=== PATIENT | male | born 1975 | race Hispanic/Latino ===

== ENCOUNTER 2023-10-21 16:06 | Emergency (ER) | payer SELFPAY ==
[2023-10-21] VITALS (22 sets, daily range): BP systolic 116–153; BP diastolic 77–96; PULSE 70–113; RESP 10–25; TEMP 36.3; O2SAT 96–100; BMI 22.3
--- NOTE | 2023-10-21 16:13 | CT_ITS ---
EXAMINATION : Head CT w/out contrast HISTORY : Ataxia COMPARISON : None. TECHNIQUE : Multiple contiguous axial images were obtained from the skull base to the vertex without intravenous contrast. A radiation dose optimization technique was used for this scan. FINDINGS : There is edema in the left parietal lobe with decreased meadows-white differentiation. Cannot rule out underlying mass. The ventricles and sulci are normal in size. There is no evidence for acute intracranial hemorrhage, mass effect, or midline shift. There is no extra-axial fluid collection. Small kesha hole in the left parietal convexity. The orbits are unremarkable. The paranasal sinuses are clear. The mastoid air cells are well-aerated. The soft tissues are unremarkable. CT/Brain/Head without Contrast IMPRESSION: Edema in the left parietal lobe with decreased meadows-white differentiation. Cannot rule out underlying mass. Recommend brain MRI with and without contrast for further evaluation. Electronically Signed: Kelvin Vega MD at 17:02 EDT ,
--- NOTE | 2023-10-21 16:18 | ED.VIS.STROK ---
HPI History of Present Illness Chief Complaint: Numb/Ting Informant: patient and family Onset/Context/Timing Onset: Today Context: Sudden Onset Timing: Continuous Quality and Location: Positive for - (Right arm and leg ataxia) Onset: 1 hour prior to arrival Worsened by: Nothing Relieved by: Nothing Associated Symptoms Associated Symptoms: Negative for Headache, Nausea, Vomiting or Chest Pain Narrative Narrative: Patient presents with ataxia to his right side that began approximately 1 hour prior to arrival. Patient had recent surgery for a brain biopsy at [facility] 1 month ago. Patient states he has been feeling uncoordinated on his right side. Patient denies any headaches or weakness. Patient denies any nausea or vomiting. Patient denies any visual changes. Patient denies any numbness or tingling. Patient was recently started on Keppra after his brain surgery. Recent Illness/Hospitalization: Yes PFSH PFSH Home Medications ?Medication ?Instructions ?Recorded ?Last Taken ?Type cephalexin 500 mg capsule 500 mg PO .COMPLEX 10/21/23 Unknown History levetiracetam 1,000 mg tablet 3,000 mg PO Q12H 10/21/23 Unknown History (Keppra) Allergy/AdvReac Type Severity Reaction Status Date / Time No Known Allergies Allergy Verified 10/21/23 16:10 Surgical History (Updated 10/21/23 @ 16:[address] Jose Crystal DO) Hx of brain surgery Social History Smoking Status: Never smoker ROS ROS ED Constitutional Constitutional ED: Denies chills or fever(s) Eyes Eyes: Denies blurry vision or change in vision ENT ENT ED: Denies rhinorrhea or sore throat Cardiovascular Cardiovascular: Denies chest pain or palpitations Respiratory/Chest Respiratory/Chest: Denies cough or dyspnea Gastrointestinal Gastrointestinal: Denies nausea or vomiting Genitourinary Genitourinary ED: Denies dysuria or hematuria Musculoskeletal Musculoskeletal: Denies back pain or neck pain Integumentary Denies abscess or rash Neurologic Neurologic: Denies headache(s) or weakness Allergic/Immunologic Allergic/Immunologic ED: Denies mouth swelling or urticaria EXAM Physical Exam Const Vital Signs: 10/21/23 16:08 10/21/23 17:04 10/21/23 17:58 Temperature 97.3 F L Temperature Source Temporal Pulse Rate 113 H 88 91 Respiratory Rate 19 H 20 H 20 H Blood Pressure 153/94 H 140/93 H 137/85 H Blood Pressure Mean 113 108 102 Pulse Ox 100 96 98 Oxygen Delivery Method Room Air Room Air Room Air Positive well nourished and well developed General Appearance ED: well developed and NAD HEENT Reports moist mucous membranes Neck supple and no JVD Resp normal respiratory effort and clear to auscultation bilaterally Cardio Rate: regular rate Rhythm: regular rhythm GI soft to palpation, non-tender and non-distended Extremity normal to inspection General Extremety ED: Negative for deformity or edema General Extremity: Negative for deformity or edema Neuro oriented x3, CN's II-XII intact bilaterally and no sensory deficits noted Neuro Narrative: There is some mild ataxia with finger-nose testing on the right. [id number]-[id number] testing was negative bilaterally. Vicente Coma Scale: document GCS findings Spontaneous Obeys Commands Oriented 15 Sensorium / Orientation: alert Speech: speech normal Motor Exam: strength 5/5 throughout Psych mental status grossly normal MDM MDM MDM Narrative Medical decision making narrative: Differential diagnosis includes stroke, intracranial bleeding, intracranial mass, Keppra toxicity, electrolyte abnormality, dehydration, cardiac dysrhythmia, and cardiac ischemia. CT scan of the brain will be obtained to assess for intracranial bleeding, stroke, and mass. EKG will be obtained to assess for cardiac dysrhythmia. CBC will be obtained to assess for leukocytosis and anemia. Basic metabolic profile will be obtained to assess for electrolyte abnormality and renal function. High-sensitivity troponin will be obtained to assess for cardiac ischemia. PT with INR and PTT will be obtained to assess for coagulopathy. Keppra level will be obtained to assess for Keppra toxicity. Lab Data Attestation: I reviewed the patient's lab results. Lab results narrative: CBC was reviewed and was within normal limits. PT was INR and PTT were reviewed and were within normal limits. Basic metabolic profile was reviewed. Creatinine was slightly elevated at 1.47. The remainder is within normal limits. High-sensitivity troponin was reviewed and was less than 3. BGT was reviewed and was normal at 89. Labs: Laboratory Results - last 24 hr 10/21/23 10/21/23 16:17 16:18 WBC 7.8 RBC 5.69 Hgb 16.0 Hct 46.3 MCV 81.4 MCH 28.1 MCHC 34.6 RDW Std Deviation 36.1 RDW Coeff of Yisel 12.3 Plt Count 213 MPV 10.7 Immature Gran % (Auto) 0.300 Neut % (Auto) 69.6 Lymph % (Auto) 21.2 [place] % (Auto) 4.9 Eos % (Auto) 3.6 Baso % (Auto) 0.4 Absolute Neuts (auto) 5.4 Absolute Lymphs (auto) 1.65 Nucleated RBC % 0 PT 13.3 INR 1.0 APTT 29.1 Sodium 137 Potassium 3.8 Chloride 103 Carbon Dioxide 25.0 Anion Gap 9 BUN 17 Creatinine 1.47 H Estim Creat Clear Calc 62.61 Est GFR (MDRD) Af Amer 66 Est GFR (MDRD) Non-Af 55 L BUN/Creatinine Ratio 11.6 Glucose 104 Calcium 9.6 Troponin I High Sens < 3 L POC Glucose 89 Radiography Diagnostic Testing: Clinical Impression(s) from Imaging Studies Brain CT 10/21/23 16:13 IMPRESSION: Edema in the left parietal lobe with decreased meadows-white differentiation. Cannot rule out underlying mass. Recommend brain MRI with and without contrast for further evaluation. Electronically Signed: Kelvin Vega MD at 17:02 EDT , CT scan of the brain was obtained. There is edema in the left parietal lobe with decreased meadows-white differentiation. There is no acute bleed noted. This was interpreted by the radiologist was also independently reviewed by myself. EKG Initial EKG: Attestation: I personally reviewed and interpreted this EKG as follows: Interpretation: Sinus Rhythm (95) and No Acute Injury Pattern Comments: EKG was obtained. On my independent interpretation, it showed a normal sinus rhythm with a rate of 95. MT interval, QRS interval, and QTc intervals were all normal. [place] was normal. There are no acute ST or T wave changes. Prior EKG tracings: not available for review Prior: No Prior Management Discussion w/another healthcare provider: [employer] (Dr. Salinas) Treatment and Re-Evaluation Narrative: Patient and family were advised of the findings. Case was discussed with Dr. Salinas, neurosurgery at [facility]. She accepted the patient to be transferred there. She discussed case with neurology. Neurology requested the patient be started on Vimpat 100 mg IV. This was ordered. Patient will be transferred to [facility] in stable condition. Patient and family understand and are agreeable with the plan. All questions were answered. Discharge Plan Triage Chief Complaint: Numb/Ting ED Provider: Jose Crystal Dx/Rx/DC Orders Clinical Impression: Cerebral edema, Seizure, Ataxia Prescriptions: No Action levetiracetam [Keppra] 1,000 mg tablet 3,000 mg PO Q12H cephalexin 500 mg capsule 500 mg PO .COMPLEX Rx Instructions: 500 mg orally 4 TIMES A DAY; Primary Care Provider: Care Physician,No Primary Referrals: Care Physician,No Primary [Primary Care Provider] - Print Language: [place] Disposition Disposition: Acute Care Hospital Discharge Location: [facility]
[2023-10-21 16:24] LABS: Absolute Lymphocyte Count 1.65 X10^3/uL (0.83-4.51); Absolute Neutrophil Count 5.4 X10^3/uL (2.0-7.7); Basophil# 0.03 X10^3/uL; Basophil% 0.4 % (0-1); Eosinophil# 0.28 X10^3/uL; Eosinophils% 3.6 % (0-5); Hematocrit 46.3 % (40-54); Lymphocyte # 1.65 X10^3/ul (0.83-4.51); Lymphocyte % 21.2 % (19-41); Mean Corp Hgb Conc 34.6 g/dL (32-36); Mean Corpuscular Hgb 28.1 pg (27.0-32.0); Mean Corpuscular Volume 81.4 fL (80-94); Mean Platelet Vol. 10.7 fl (6.2-12.0); Monocyte# 0.38 X10^3/uL; Monocyte% 4.9 % (0-10); NRBC Flagged by Analyzer 0 % (0-5); Neutrophil # 5.44 X10^3/uL (2.7-7.7); Neutrophil % 69.6 % (47-70); Platelet Count 213 K/mm3 (150-450); RBC Distribution Width CV 12.3 % (11.6-14.6); RBC Distribution Width SD 36.1 fl (35.1-43.9); Red Blood Count 5.69 M/mm3 (4.6-6.2); White Blood Count 7.8 K/mm3 (4.4-11.0)
--- NOTE | 2023-10-21 16:27 | EKG12_ITS ---
Test Reason : Blood Pressure : / mmHG Vent. Rate : 095 BPM Atrial Rate : 095 BPM P-R Int : 126 ms QRS Dur : 084 ms QT Int : 340 ms P-R-T Axes : 073 050 054 degrees QTc Int : 427 ms Normal sinus rhythm Normal ECG Confirmed by Dru Youssef ([id number]), associate editor CAMRON GARCIA ([id number]) on 10/23/2023 10:30:42 AM Referred By: Confirmed By:Dru Youssef
--- NOTE | 2023-10-21 16:30 | NURSING ---
NO OLD EKGS
[2023-10-21 16:34] LABS: Prothrombin Time (Protime)PT. 13.3 SECONDS (11.7-14.9)
[2023-10-21 16:35] LABS: Partial Thromboplast Time 29.1 Seconds (24.1-36.2)
[2023-10-21 16:36] LABS: Bedside Glucose 89 mg/dL (74-106)
[2023-10-21 16:43] LABS: Anion Gap 9 (5-15); BUN 17 mg/dL (7-18); BUN/Creat Ratio 11.6 RATIO (10-20); Calcium,Total 9.6 mg/dL (8.5-10.1); Chloride 103 mmol/L (98-107); Creatinine, Serum 1.47 mg/dL (0.70-1.30); EST Glomerular Filtration Rate 55 mL/min (>60); Est Glom Filt Rate - Afr Amer 66 mL/min (>60); Estimated Creatinine Clearance 62.61 ml/min; Glucose 104 mg/dL (74-106); Potassium 3.8 mmol/L (3.5-5.1); Sodium Level 137 mmol/L (136-145); Troponin-I HS < 3 pg/mL (3.0-78.0)
--- NOTE | 2023-10-21 17:00 | ED.RN ---
PT AND FAMILY CONCERNED THAT THEY ARE 'FEELING AN ELECTRICAL SHOCK ON RIGHT SIDE, SAYS IT IS DIFFERENT THAN BEFORE. NOTIFIED
--- NOTE | 2023-10-21 17:17 | ED.RN ---
Family called out, patient had an episode of turning his head and full body shaking with patient not responding. Per family this was one of the symptoms that he was seen for originally.
--- NOTE | 2023-10-21 18:04 | NURSING ---
CALLED [facility], TALKED TO FRANCES, TRANSFER LINE
--- NOTE | 2023-10-21 18:18 | NURSING ---
DR MARQUES FOR DR HAIDER
[2023-10-21] MEDS: Lacosamide 100 MG in 0.9% Normal Saline (50mL Bag) 50 ML IV (19:25)
[2023-10-21] MEDS: Cephalexin 500 MG Capsule PO (21:21)
[2023-10-21] MEDS: levETIRAcetam 750 MG Tablet 1500 MG PO (21:21)
[2023-10-22] VITALS: BP 125/88; PULSE 68; RESP 15
[2023-10-25 17:07] LABS: KEPPRA (LEVETIRACETAM) 39.1 ug/mL (10.0-40.0)
== END 2023-10-22 00:18 | disposition short-term general hospital (02) ==
PROVIDERS: Emergency Provider Emergency Medicine; Visit Provider Emergency Medicine
DX: G93.6 Cerebral edema (principal); R56.9 Unspecified convulsions; R27.0 Ataxia, unspecified; Z98.890 Other specified postprocedural states
CPT/HCPCS: 70450; 80048; 80177; 82962; 84484; 85025; 85610; 85730; 93005; 96365; 99285; C9254; J3490